=== PATIENT | female | born 2005 | race African-American/Black ===

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

== ENCOUNTER 2024-07-15 01:40 | Emergency (ER) | payer MEDICAID ==
[~2024-07-15] VITALS: Ht 172.7 cm; Wt 62.0 kg
[~2024-07-15 01:40] MED LIST: CEPH500T MT
[2024-07-15] MEDS: ACETAMINOPHEN 325MG TABLET PO ONE (02:00)
[2024-07-15 02:51] LABS: BASOPHILS % 0.7 % (0.0-2.0); EOSINOPHILS % 1.4 % (0.0-5.0); HEMOGLOBIN. 13.7 g/dL (12.0-16.0); LYMPHOCYTES % 14.2 % (20.0-50.0); MEAN CORPUSCULAR HEMOGLOBIN 32.2 pg (28.0-32.0); MEAN CORPUSCULAR HGB CONC 33.4 g/dL (31.0-37.0); MEAN CORPUSCULAR VOLUME 96.4 fL (81.0-99.0); MEAN PLATELET VOLUME 10.1 fl (7.4-10.4); MONOCYTES % 4.8 % (2.0-8.0); NEUTROPHILS % 78.9 % (40.0-76.0); PLATELET 208 x1000/uL (130-400); RED BLOOD CELL COUNT 4.25 mill/uL (4.2-5.4); RED CELL DISTRIBUTION WIDTH 13.9 % (11.6-14.6)
[2024-07-15 03:02] LABS: CHLORIDE 106 mEq/L (98-107); POTASSIUM 4.1 mEq/L (3.5-5.1); SODIUM 141 mEq/L (136-145)
[2024-07-15 03:03] LABS: CARBON DIOXIDE 21 mEq/L (21-32)
[2024-07-15 03:04] LABS: CALCIUM 9.5 mg/dL (8.7-10.4)
[2024-07-15 03:08] LABS: CREATININE 0.7 mg/dL (0.6-1.0); GLUCOSE 108 mg/dL (70-105)
[2024-07-15 03:09] LABS: ETHANOL BLOOD 142 mg/dL (<10); UREA NITROGEN BLOOD 10 mg/dL (9-23)
[2024-07-15 03:51] LABS: HCG SCREEN NEGATIVE
[2024-07-15] MEDS: TETANUS, DIPHTHERIA, PERTUSSIS VAC/PF 0.5ML (>10YR OLD) IM ONE (06:27)
[2024-07-15] MEDS: MORPHINE SULFATE 4 MG/ML INJ (FOR IV/IM USE) IV ONE (06:28)
[2024-07-15] MEDS: LIDOCAINE HCL 1% 20ML VIAL INFIL ONE (06:33)
[2024-07-15] MEDS: SODIUM CHLORIDE 0.9% 1,000 ML IV ONE (06:33)
[2024-07-15] MEDS: PROPOFOL 200MG/20ML VIAL IV ONE (06:34)
[2024-07-15 06:38] VITALS: O2SAT 98
[2024-07-15 06:59] VITALS: TEMP 36.9
[2024-07-15] MEDS ORDERED: HYDR-4001 MT (07:31)
[2024-07-15] MEDS ORDERED: AMOX1TAB16 MT (07:34)
[2024-07-15] MEDS ORDERED: PSEU-207 MT (07:34)
[2024-07-15] MEDS: CEFAZOLIN 1000MG PREMIX 50 ML IV ONE (08:28)
[2024-07-15] MEDS: GUAIFENESIN 600MG ER TABLET PO NR (08:28)
[2024-07-15] MEDS: BACITRACIN 14GM TUBE TOP ONE (08:30)
[2024-07-15] MEDS: HYDROCODONE/ACETAMINOPHEN 5/325MG TABLET PO NR (08:30)
[2024-07-15 09:11] VITALS: BP 121/89; PULSE 94; RESP 20; O2SAT 100
== END 2024-07-15 09:14 | disposition home or self-care (01) ==
LOC: ER 01:40
DX: S02.2XXA Fracture of nasal bones, initial encounter for closed fracture (principal); S01.81XA Laceration without foreign body of other part of head, initial encounter; F10.129 Alcohol abuse with intoxication, unspecified; J45.909 Unspecified asthma, uncomplicated; Z90.49 Acquired absence of other specified parts of digestive tract; W18.2XXA Fall in (into) shower or empty bathtub, initial encounter; Y93.89 Activity, other specified; Y92.89 Other specified places as the place of occurrence of the external cause; Y99.8 Other external cause status; Y90.6 Blood alcohol level of 120-199 mg/100 ml
CPT/HCPCS: 80048; 80320; 84703; 85025; 36415; 70450; 70486; 90715; 12011; 90471; 96361; 96365; 96375; 99152; 99285; J0690; J3490; J2704; J2270; J7030; Z7610 ×3; G0480